=== PATIENT | male | born 1975 | race Caucasian/White ===

== ENCOUNTER 2021-02-10 15:27 | Outpatient (CLI) | payer OTHER | END 2021-02-10 15:28 | disposition home or self-care (01) | LOC: LAB.S 15:27 | PROVIDERS: ATTEND Internal Medicine | DX: G44.89 Other headache syndrome (principal); H53.9 Unspecified visual disturbance; R53.83 Other fatigue; N52.9 Male erectile dysfunction, unspecified | CPT/HCPCS: 36415; 81599; 84146; 84402; 84403 ==